=== PATIENT | male | born 1995 | race Caucasian/White ===

== ENCOUNTER 2019-10-09 12:05 | Emergency (ER) | payer OTHER ==
[2019-10-09 13:00] VITALS: BP 147/73
--- NOTE | 2019-10-09 13:29 | UC ---
Cardiac HPI - HPI Summary HPI Summary: Pt presents with c/o gradual onset of worsening left side chest pain that radiates to left arm, neck and side of face. Pt reports that he took a firend's xanax and felt much better after taking it but chest pain returned immediately following xanax "wore off" - History of Current Complaint Chief Complaint: UCGeneralIllness Stated Complaint: LEFT RIB/UNDERARM/CHEST PAIN Time Seen by Provider: 10/09/19 12:53 Hx Obtained From: Patient Onset/Duration: Gradual Onset, Lasting Weeks - 3, Still Present, Worse Since - onset Timing: Constant Initial Severity: Mild Current Severity: Moderate Pain Intensity: 2 Chest Pain Location: Mid Sternal, Left Anterior Character: Dull/Aching, Tightness, Heaviness Aggravating Factor(s): Nothing Alleviating Factor(s): Nothing Associated Signs & Symptoms: Positive: Chest Pain - Risk Factors Pulmonary Embolism Risk Factors: Negative Cardiac Risk Factors: Negative Atrial Fibrillation: Negative TAD Risk Factors: Negative - Allergy/Home Medications Allergies/Adverse Reactions: Allergies Allergy/AdvReac Type Severity Reaction Status Date / Time No Known Allergies Allergy Verified 10/09/19 12:57 PMH/Surg Hx/FS Hx/Imm Hx Previously Healthy: Yes Psychological History: Anxiety, Depression - Surgical History Surgical History: None - Family History Known Family History: Positive: Cardiac Disease - Social History Occupation: Student - [employer] [place] Lives: Dormitory/Roommates Alcohol Use: Daily Alcohol Amount: 4 beers Substance Use Type: Marijuana Substance Use Comment - Amount & Last Used: occasional Smoking Status (MU): Current Some Day Smoker Type: Cigarettes Amount Used/How Often: socially Have You Smoked in the Last Year: Yes - Immunization History Vaccination Up to Date: Yes Review of Systems All Other Systems Reviewed And Are Negative: Yes Constitutional: Positive: Negative Skin: Positive: Negative Eyes: Positive: Negative ENT: Positive: Negative Respiratory: Positive: Negative Cardiovascular: Positive: Chest Pain Gastrointestinal: Positive: Negative Genitourinary: Positive: Negative Motor: Positive: Negative Neurovascular: Positive: Negative Musculoskeletal: Positive: Negative Neurological: Positive: Negative Psychological: Positive: Negative Is Patient Immunocompromised?: No Physical Exam Triage Information Reviewed: Yes Appearance: Well-Appearing, Other: - verbalizes that he has anxiety and has chest pain and left arm pain Vital Signs: Initial Vital Signs Temp 98.7 F 10/09/19 12:55 Pulse 89 10/09/19 12:55 Resp 16 10/09/19 12:55 BP 147/73 10/09/19 12:55 Pulse Ox 100 10/09/19 12:55 Vital Signs Reviewed: Yes Eye Exam: Normal ENT Exam: Normal Dental Exam: Normal Neck exam: Normal Respiratory Exam: Normal Respiratory: Positive: No respiratory distress Cardiovascular Exam: Normal Cardiovascular: Positive: RRR, No Murmur Musculoskeletal Exam: Normal Neurological Exam: Normal Psychological Exam: Normal Skin Exam: Normal - Assessment/Plan Course Of Treatment: I discussed with the pt the need to establish care with a health care provider for his anxiety and possible depression. Pt verbalized understanding and agreed to plan of care. - Differential Diagnoses - Chest Pain Differential Diagnosis/HQI/PQRI: ACS, Angina, Pulmonary Embolism - Differential Diagnoses - Hypertension Differential Diagnosis/HQI PQRI: Angina, Myocardial Infarction - Differential Diagnoses - Palpitations Differential Diagnosis/HQI/PQRI: AV Block, Coronary Artery Disease, Myocarditis - Clinical Impression Provider Diagnosis: Anxiety Discharge ED - Sign-Out/Discharge Documenting (check all that apply): Patient Departure All imaging exams completed and their final reports reviewed: No Studies - Discharge Plan Condition: Stable Disposition: HOME Prescriptions: ALPRAZolam TAB* [Xanax TAB*] 0.25 mg PO Q12H PRN #10 tab MDD 2 tabs PRN Reason: Anxiety Patient Education Materials: Generalized Anxiety Disorder (ED) Forms: *School Release Referrals: [facility] [place] [facility] [Outside] - If Needed No Primary Care Phys,NOPCP [Primary Care Provider] - Additional Instructions: Please follow up with your PCP as soon as possible. Please establish care with a mental health professional as soon as possible. - Billing Disposition and Condition Condition: STABLE Disposition: Home
== END 2019-10-09 13:54 | disposition home or self-care (01) ==
LOC: UCCORT 12:05
DX: F41.9 Anxiety disorder, unspecified (principal); R07.89 Other chest pain; M79.602 Pain in left arm; M54.2 Cervicalgia; R51 Headache; F17.210 Nicotine dependence, cigarettes, uncomplicated
CPT/HCPCS: 93005; 99202; G0463